=== PATIENT | male | born 1980 | race Hispanic/Latino ===

== ENCOUNTER 2017-07-09 15:36 | Emergency (ER) | payer OTHER ==
[~2017-07-09] VITALS: Ht 170.2 cm; Wt 95.3 kg
[~2017-07-09 15:36] MED LIST: KEFLEX500 M1 PO
--- NOTE | 2017-07-09 15:47 | ED ANIMAL BITE/WOUND CHECK ---
History of Present Illness General Chief Complaint: Suture Removal/Wound Recheck Stated Complaint: SUTURE REMOVAL Source: patient Exam Limitations: no limitations Vital Signs & Intake/Output Vital Signs & Intake/Output Vital Signs Date Time Temp Pulse Resp B/P B/P Pulse O2 O2 Flow FiO2 Mean Ox Delivery Rate 07/09 1554 98.9 80 18 140/70 98 Room Air Allergies Coded Allergies: NO KNOWN ALLERGIES (02/15/11) Reconcile Medications Cephalexin (Keflex) 500 MG CAPSULE 1 CAP PO BID skin Triage Nurses Notes Reviewed? yes Onset: Abrupt Duration: day(s): (10) Timing: remote history Injury Environment: home Is Injury an Animal Bite? No Severity: mild HPI: pt is a 36-year-old male presenting to the emergency department for suture removal of right hand. had sutures placed 10 days ago. Reports his been healing up well. Denies any increased redness pain or swelling. No discharge. Denies fevers or chills. He had 4 sutures placed. (Caitlyn Moe) Past History Travel History Traveled to [place] past 21 day No Medical History Any Pertinent Medical History? see below for history Neurological: NONE EENT: NONE Cardiovascular: NONE Respiratory: NONE Gastrointestinal: NONE Hepatic: NONE Renal: NONE Musculoskeletal: NONE Psychiatric: NONE Endocrine: NONE Blood Disorders: NONE Cancer(s): NONE [employer]CHARD/Reproductive: NONE Tetanus Vaccine: 06/29/17 Surgical History Surgical History: non-contributory Psychosocial History What is your primary language Italian Family History Hx Contributory? No (Caitlyn Moe) Review of Systems Review of Systems Constitutional: Reports: no symptoms. Comments Review of systems: See HPI, All other systems negative. Constitutional, no chills fever or weight loss HEENT: No visual changes no sore throat no congestion Cardiovascular: No chest pain ,palpitation Skin, no jaundice no rashes Respiratory: No dyspnea cough sputum or hemoptysis GI: No nausea no vomiting Muscle skeletal: no back pain, no neck pain, Neurologic: No numbness Psych: No stress anxiety or depression,. Heme/endocrine: No bruising no bleeding no polyuria or polydipsia Immunology: No splenectomy or history of AIDS (Caitlyn Moe) Physical Exam Physical Exam General Appearance: well developed/nourished, no apparent distress, alert, awake , comfortable Comments: Well-developed well-nourished person in no acute distress HEENT: Traumatic, normocephalic Neck: Normal inspection Back: Nontender, no CVA tenderness. Full range of motion Cardiovascular: radial pulses are 2+ bilaterally. Capillary refill intact in upper extremities bilaterally. Respiratory: No respiratory distress. Extremity: No edema, full rom of fingers of right hand. Neuro: Alert oriented x3 Skin: healing laceration over right 5th mcp joint. [address] no surrounding erythema or edema. Psych: Mood and affect is normal, memory and judgment is normal. (Caitlyn Moe) Progress Differential Diagnosis: abscess, cellulitis, wound check, suture removal Plan of Care: 2 Sutures removed without difficulty. wound edeges appear to be not completely healed. the 2 other sutures left in. pt will return in 4 days. (Caitlyn Moe) Departure Departure Time of Disposition: 1545 Disposition: HOME OR SELF CARE Condition: Stable Clinical Impression Primary Impression: Visit for suture removal Referrals: Unknown (PCP/Family) Additional Instructions: follow up with your pcp call to make appt. keep area clean and dry. return for worsening symptoms or concerns. Departure Forms: Customer Survey General Discharge Information (Caitlyn Moe) PA/TITLE ABSTRACTOR Co-Sign Statement Statement: ED Attending supervision documentation- I saw and evaluated the patient. I have also reviewed all the pertinent lab results and diagnostic results. I agree with the findings and the plan of care as documented in the PA's/TITLE ABSTRACTOR's documentation. x I have reviewed the ED Record and agree with the PA's/TITLE ABSTRACTOR's documentation. [] Additions or exceptions (if any) to the PAs/TITLE ABSTRACTOR's note and plan are summarized below: [] (Tulio MARQUEZ,Alberto)
[2017-07-09 15:54] VITALS: BP 140/70
== END 2017-07-09 15:57 ==
LOC: ERH 15:36
DX: Z48.00 Encounter for change or removal of nonsurgical wound dressing (principal)